=== PATIENT | female | born 1975 | race Caucasian/White ===

== ENCOUNTER 2018-02-23 03:27 | Emergency (ER) | payer SELFPAY ==
[2018-02-23 07:08] VITALS: BP 119/82
[2018-02-23] MEDS ORDERED: HYDROXYZINE PAMOATE 50 MG CAPSULE PO ONE (07:17)
[2018-02-23] MEDS ORDERED: FAMOTIDINE 20 MG TABLET PO ONE (07:17)
[2018-02-23] MEDS ORDERED: PREDNISONE 20 MG TABLET PO ONE (07:17)
--- NOTE | 2018-02-23 07:20 | ER Document Report ---
HPI - HPI Patient complains to provider of: hives Time Seen by Provider: 02/23/18 07:08 Onset: Other - 2 weeks Onset/Duration: Waxing and waning Quality of pain: No pain Pain Level: Denies Associated Symptoms: Other - skin rash. denies: Fever, Headache, Vomiting, Rhinnorhea Exacerbated by: Denies Relieved by: Denies Similar symptoms previously: No Recently seen / treated by doctor: No Notes: Patient presents complaining of hives that have been coming and going for the past 2 weeks. Patient complains of pruritus. Patient denies any new foods medications or detergents. Patient has been treating her symptoms with [id number] Benadryl. - ROS ROS below otherwise negative: Yes Systems Reviewed and Negative: Yes All other systems reviewed and negative - CONSTITUTIONAL Constitutional: DENIES: Fever, Chills - EENT EENT: DENIES: Sore Throat, Congestion - NEURO Neurology: DENIES: Headache - RESPIRATORY Respiratory: DENIES: Coughing - GASTROINTESTINAL Gastrointestinal: DENIES: Nausea, Patient vomiting - DERM Skin Color: Normal Skin Problems: Rash Past Medical History - General Information source: Patient - Social History Smoking Status: Never Smoker Chew tobacco use (# tins/day): No Drug Abuse: None Occupation: none Lives with: Spouse/Significant other Family History: Reviewed & Not Pertinent Patient has suicidal ideation: No Patient has homicidal ideation: No Endocrine Medical History: Reports: Hx Hypothyroidism Renal/ Medical History: Denies: Hx Peritoneal Dialysis Surgical Hx: Negative Vertical Provider Document - CONSTITUTIONAL Agree With Documented VS: Yes Exam Limitations: No Limitations General Appearance: WD/WN, No Apparent Distress - HEENT HEENT: Atraumatic, Normal ENT Exam, Normocephalic Notes: No angioedema, no potential airway compromise - NECK Neck: Normal Inspection, Supple. negative: Lymphadenopathy-Left, Lymphadenopathy-Right - RESPIRATORY Respiratory: Breath Sounds Normal, No Respiratory Distress - CARDIOVASCULAR Cardiovascular: Regular Rate, Regular Rhythm, No Murmur - MUSCULOSKELETAL/EXTREMETIES Musculoskeletal/Extremeties: MAEW - NEURO Level of Consciousness: Awake, Alert, Appropriate Motor/Sensory: No Motor Deficit - DERM Integumentary: Warm, Dry, Rash - Urticarial rash with scattered distribution to trunk and extremities Course - Vital Signs Vital signs: Temp Pulse Resp BP Pulse Ox 97.9 F 70 18 119/82 100 02/23/18 07:07 02/23/18 07:07 02/23/18 07:07 02/23/18 07:07 02/23/18 07:07 Discharge - Discharge Clinical Impression: Urticaria Condition: Stable Disposition: HOME, SELF-CARE Instructions: Acute Urticaria ([facility]), Antihistamines ([facility]), Steroid Medication Additional Instructions: Return immediately for any new or worsening symptoms Followup with your primary care provider, call tomorrow to make a followup appointment Prescriptions: Famotidine [Pepcid 20 mg Tablet] 20 mg PO BID #12 tablet Hydroxyzine HCl [Atarax 25 mg Tablet] 1 - 2 tab PO QID #20 tablet Prednisone [Deltasone 20 mg Tablet] 3 tab PO DAILY 4 Days tablet Referrals: [facility] [Provider Group] - Follow up as needed
== END 2018-02-23 08:08 | disposition home or self-care (01) ==
LOC: ER 03:27
DX: L50.9 Urticaria, unspecified (principal); L29.9 Pruritus, unspecified
CPT/HCPCS: 99283; J7512